=== PATIENT | male | born 1970 | race Two or more races ===

== ENCOUNTER 2021-11-02 02:11 | Emergency (ER) | payer MEDICAID ==
[~2021-11-02] VITALS: Ht 167.6 cm; Wt 90.0 kg
[2021-11-02 02:45] VITALS: BP 135/82
[2021-11-02] MEDS ORDERED: LIDOCAINE HCL/PF 1% 10 MG/ML 5ML VIAL INFIL ONE (02:45)
[2021-11-02] MEDS ORDERED: BACITRACIN ZINC OINT UDPKT TOP ONE (02:45)
[2021-11-02] MEDS ORDERED: HYDROCODONE/ACETAMINOPHEN 5/325MG TABLET PO ONE (02:45)
[2021-11-02] MEDS ORDERED: TETANUS, DIPHTHERIA, PERTUSSIS VAC/PF 0.5ML (>10YR OLD) IM ONE (02:45)
[2021-11-02] MEDS ORDERED: CEFAZOLIN 1000MG PREMIX 50 ML IV ONE (03:45)
[2021-11-02] MEDS ORDERED: HYDR-4001 MT (04:53)
[2021-11-02] MEDS ORDERED: AMOX1TAB16 MT (04:53)
[2021-11-02] MEDS ORDERED: CEFAZOLIN 1000MG PREMIX 50 ML IV NR (05:00)
== END 2021-11-02 05:53 | disposition home or self-care (01) ==
LOC: ER 02:11
DX: S62.631A Displaced fracture of distal phalanx of left index finger, initial encounter for closed fracture (principal); X58.XXXA Exposure to other specified factors, initial encounter; Y93.89 Activity, other specified; Y92.89 Other specified places as the place of occurrence of the external cause; Y99.8 Other external cause status
CPT/HCPCS: 12001; 73140; 90471; 90715; 96365; 99284; A4217; J0690; J3490